=== PATIENT | male | born 1980 ===

== ENCOUNTER 2017-06-15 04:43 | Emergency (ER) | payer SELFPAY ==
[2017-06-15 04:49] VITALS: BP 148/97; TEMP 98
--- NOTE | 2017-06-15 05:03 | ED PDOC ---
HPI: General Adult Time Seen by Provider: 06/15/17 04:55 Chief Complaint (Nursing): Medical Clearance Chief Complaint (Provider): clearance for incarceration History Per: Patient History/Exam Limitations: no limitations Additional History Per: Patient Additional Complaint(s): 37 y/o male here in police custody for clearance for incarceration. Patient denies acute medical or psychiatric complaints. Past Medical History Reviewed: Historical Data, Nursing Documentation, Vital Signs Vital Signs: Last Vital Signs Temp 98.0 F 06/15/17 04:46 Pulse 97 H 06/15/17 05:11 Resp 16 06/15/17 05:11 BP 148/97 H 06/15/17 04:46 Pulse Ox 98 06/15/17 05:11 - Medical History PMH: No Chronic Diseases - Surgical History Surgical History: No Surg Hx - Family History Family History: States: No Known Family Hx - Social History Current smoker - smoking cessation education provided: No Alcohol: Social Drugs: Denies - Allergies Allergies/Adverse Reactions: Allergies Allergy/AdvReac Type Severity Reaction Status Date / Time No Known Allergies Allergy Verified 06/15/17 04:46 Review of Systems ROS Statement: Except As Marked, All Systems Reviewed And Found Negative Physical Exam - Reviewed Nursing Documentation Reviewed: Yes Vital Signs Reviewed: Yes - Physical Exam Appears: Positive for: Well, Non-toxic, No Acute Distress Head Exam: Positive for: ATRAUMATIC, NORMAL INSPECTION, NORMOCEPHALIC Skin: Positive for: Normal Color Eye Exam: Positive for: Normal appearance ENT: Positive for: Normal ENT Inspection Cardiovascular/Chest: Positive for: Regular Rate, Rhythm Respiratory: Positive for: Normal Breath Sounds Gastrointestinal/Abdominal: Positive for: Normal Exam Back: Positive for: Normal Inspection Extremity: Positive for: Normal ROM Neurologic/Psych: Positive for: Alert, Oriented, Other (+AOB) - ECG O2 Sat by Pulse Oximetry: 100 - Progress ED Course And Treament: Patient medically cleared for incarceration Disposition - Clinical Impression Clinical Impression: Medical clearance for incarceration - Patient ED Disposition Is Patient to be Admitted: No Counseled Patient/Family Regarding: Diagnosis, Need For Followup - Disposition Disposition: Discharged/Transfer to Law Enforcement Disposition Time: 05:14 Condition: GOOD Additional Instructions: Patient medically cleared for incarceration Instructions: Normal Exam (ED) Print Language: [place]
[2017-06-15 05:13] VITALS: PULSE 97; RESP 16
[2017-06-15 05:15] VITALS: O2SAT 100
== END 2017-06-15 05:13 ==
LOC: H.ER 04:43
DX: Z02.89 Encounter for other administrative examinations (principal)